=== PATIENT | male | born 1970 | race Caucasian/White ===

== ENCOUNTER 2017-04-07 09:52 | Day surgery (SDC) | payer BC ==
[2017-04-07] MEDS ORDERED: FENTANYL PF 100MCG/2ML VIAL IV ONE (09:53)
[2017-04-07] MEDS ORDERED: DEXAMETHASONE PRESERVATIVE FREE 10MG/ML VIAL IV ONE (09:53)
[2017-04-07] MEDS ORDERED: *PACU ONLY* KETAMINE HCL 10 MG/ML (20ML) VIAL IV ONE (09:53)
[2017-04-07] MEDS ORDERED: MIDAZOLAM HCL 2MG/2ML VIAL IV ONE (09:53)
[2017-04-07] MEDS ORDERED: LIDOCAINE 2% MDV (20MG/ML) 20ML VIAL IV ONE (09:53)
[2017-04-07] MEDS ORDERED: LIDOCAINE 1% W/EPI 1:200,000 MPF 30ML SQ ONE (09:53)
[2017-04-07] MEDS ORDERED: PROPOFOL 10 MG/ML VIAL IV ONE (09:53)
[2017-04-07] MEDS ORDERED: BUPIVACAINE 0.75% W/EPI MPF 30ML VIAL IVP ONE (09:53)
--- NOTE | 2017-04-07 15:45 | Operative Note - [place] ---
DATE OF SURGERY: 04/07/17 PREOPERATIVE DIAGNOSIS: CERVICAL SPONDYLOSIS, ICD-10 CODE = M47.812. OPERATION: RADIOFREQUENCY RHIZOTOMY BILATERAL CERVICAL FACETS, 4-5, 5-6, AND 6-7. SURGEON: TIMMY ETIENNE D.O. ANESTHESIA: LOCAL SEDATION. ANESTHESIA PROVIDER: KARLEY PATEL CRNA INDICATION: This patient presents with pain, which is cervical spine. Diagnostics show multiple levels of spondylosis. A facet of 75-plus percent pain control. Due to the failure of therapy, the patient is here for rhizotomy for more long-term relief. PROCEDURE: Intravenous line, vital sign monitoring, IV sedation. Prepped and draped sterile technique. Cervical facet levels at 4-5, 5-6, and 6-7 were identified and marked bilaterally. Skin infiltrated. A 22-gauge rhizotomy cannula positioned. Stimulation trials conducted. Rhizotomy burn performed. Local with anti-inflammatory into the sites. Topical antibiotics. Sterile dressing was applied. We will monitor and evaluate. cc: Dr. Perry JOB NUMBER: [id number] MTDD
== END 2017-04-07 12:20 | disposition home or self-care (01) ==
LOC: SUR 09:52
PROVIDERS: ATTEND Pain Medicine Interventional Pain Medicine
DX: M47.816 Spondylosis without myelopathy or radiculopathy, lumbar region (principal)
CPT/HCPCS: 64633; 64634 ×2; 01936; J1100; J3010; J3490